=== PATIENT | male | born 2000 | race Caucasian/White ===

== ENCOUNTER 2023-12-19 19:48 | Emergency (ER) | payer OTHER ==
--- NOTE | 2023-12-19 20:08 | ED ---
Abdominal Pain HPI - General Source: patient Mode of arrival: ambulatory Limitations: no limitations <Anel Arana - Last Filed: 12/19/23 20:08> - General Source: patient, RN notes reviewed, old records reviewed <Demetrio De La Vega - Last Filed: 12/20/23 00:35> - General Chief Complaint: Abdominal Pain Stated Complaint: abd pain, sent by UC Time Seen by Provider: 12/19/23 20:08 - History of Present Illness Initial Comments: 23-year-old male presenting with chief complaint of abdominal pain. States that he has been having lower abdominal pain for the last 2 weeks. He did have 1 episode of vomiting but has not had any further vomiting. States that he has had stomach issues "for a while". Was seen by urgent care and sent here to rule out appendicitis (Anel Arana) Patient is a 23-year-old male who presents emergency department complaining of abdominal pain. Has been ongoing for weeks. States he has been worse over the last few days. Had 1 episode of vomiting but otherwise just complains of mild nausea. Did have some diarrhea a few weeks ago but that has resolved. Was sent by urgent care for CT to rule out appendicitis. Denies any other acute complaints at this time. Originally seen as a quick note. I evaluated the patient when he was placed in a room. (Demetrio De La Vega) - Related Data Previous Rx's Medication Instructions Recorded Dicyclomine [Bentyl] 10 mg PO TID PRN 7 Days #21 capsule 12/19/23 Allergies Allergy/AdvReac Type Severity Reaction Status Date / Time No Known Allergies Allergy Verified 12/19/23 19:59 Review of Systems ROS Other: All systems not noted in ROS Statement are negative. <Anel Arana - Last Filed: 12/19/23 20:08> ROS Other: All systems not noted in ROS Statement are negative. <Demetrio De La Vega - Last Filed: 12/20/23 00:35> ROS Statement: Those systems with pertinent positive or pertinent negative responses have been documented in the HPI. Review of Systems: CONST: Denies fever EYES: Denies blurry vision ENT: Denies nasal congestion C/V: Denies Chest pain RESP: Denies shortness of breath GI: Endorses abdominal pain : Denies dysuria SKIN: Denies rash. MSK: Denies joint pain. NEURO: Denies headache (Demetrio De La Vega) Past Medical History Past Medical History: No Reported History History of Any Multi-Drug Resistant Organisms: None Reported Past Surgical History: No Surgical Hx Reported Past Psychological History: Anxiety Smoking Status: Current every day smoker, Vaper Past Alcohol Use History: None Reported Past Drug Use History: None Reported <Anel Arana - Last Filed: 12/19/23 20:08> General Exam Limitations: no limitations <Anel Arana - Last Filed: 12/19/23 20:08> <Demetrio De La Vega - Last Filed: 12/20/23 00:35> - General Exam Comments Initial Comments: Visual Physical Exam Vital signs reviewed General: Well-appearing, nontoxic, no acute distress. Head: Normocephalic, atraumatic Eyes: PERRLA, EOMI ENT: Airway patent Chest: Nonlabored breathing Skin: No visual rash, normal skin tone Neuro: Alert and oriented 3 Musculoskeletal: No gross abnormalities (Anel Arana) General: Appears in no acute distress. HEAD: Normal with no signs of head trauma. EYES: PERRLA, EOMI, conjunctiva normal, no discharge. ENT: Hearing grossly intact, normal oropharynx. RESPIRATORY: Clear breath sounds bilaterally. No wheezes, rales, or rhonchi. C/V: Regular rate and rhythm. S1 and S2 auscultated, no edema, peripheral pulses 2+ and intact throughout ABD: Abdomen is soft, nondistended. Mildly tender to palpation in bilateral lower quadrants. No guarding. No rebound tenderness. No peritoneal signs. EXT: Normal range of motion, no obvious deformity SKIN: No rashes or lesions observed on exposed skin. NEURO: Alert and oriented x 4. (Demetrio De La Vega) Course Vital Signs 12/19/23 12/19/23 20:00 23:08 Temperature 98.2 F 98 F Pulse Rate 104 H 68 Respiratory 16 17 Rate Blood Pressure 114/82 119/75 O2 Sat by Pulse 99 100 Oximetry Medical Decision Making <Anel Arana - Last Filed: 12/19/23 20:08> - Lab Data Result diagrams: 12/19/23 20:43 12/19/23 20:43 <Demetrio De La Vega - Last Filed: 12/20/23 00:35> - Medical Decision Making I performed the quick note portion of this visit, electronically signed Anel Arana PA-C (Anel Arana) Was pt. sent in by a medical professional or institution (KHOI Tolbert, LEAD SETTER, urgent care, hospital, or half-way...) When possible be specific @ -Sent from urgent care for CT to rule out appendicitis Did you speak to anyone other than the patient for history (EMS, parent, family, police, friend...)? What history was obtained from this source @ -No Did you review nursing and triage notes (agree or disagree)? Why? @ -I reviewed and agree with nursing and triage notes Were old charts reviewed (outside hosp., previous admission, EMS record, old EKG, old radiological studies, urgent care reports/EKG's, half-way records)? Report findings @ -No old charts were reviewed Differential Diagnosis (chest pain, altered mental status, abdominal pain women, abdominal pain men, vaginal bleeding, weakness, fever, dyspnea, syncope, headache, dizziness, GI bleed, back pain, seizure, CVA, palpatations, mental health, musculoskeletal)? @ -Differential Abdominal Pain Men: Appendicitis, cholecystitis, diverticulosis, ischemic bowel, pancreatitis, hepatitis, UTI, gastroenteritis, AAA, incarcerated hernia, bowel obstruction, constipation, inflammatory bowel, hepatitis, peptic ulcer disease, splenic infarction, perforated viscus, testicular torsion, this is not meant to be an all-inclusive list EKG interpreted by me (3pts min.). @ -As above X-rays interpreted by me (1pt min.). @ -None done CT interpreted by me (1pt min.). @ -CT abdomen pelvis reveals no significant intra-abdominal abnormality. Possible mild bladder wall thickening however patient has no urinary complaints and urinalysis is clean. U/S interpreted by me (1pt. min.). @ -None done What testing was considered but not performed or refused? (CT, X-rays, U/S, labs)? Why? @ -None What meds were considered but not given or refused? Why? @ -None Did you discuss the management of the patient with other professionals (professionals i.e. KHOI Tolbert, LEAD SETTER, lab, RT, psych nurse, adoption social worker, cement railroad car loader, teacher, aviation tactical readiness officer, director case management)? Give summary @ -No Was smoking cessation discussed for >3mins.? @ -No Was critical care preformed (if so, how long)? @ -No Were there social determinants of health that impacted care today? How? (Homelessness, low income, unemployed, alcoholism, drug addiction, transportation, low edu. Level, literacy, decrease access to med. care, senior care, rehab)? @ -No Was there de-escalation of care discussed even if they declined (Discuss DNR or withdrawal of care, Hospice)? DNR status @ -No What co-morbidities impacted this encounter? (DM, HTN, Smoking, COPD, CAD, Cancer, CVA, ARF, Chemo, Hep., AIDS, mental health diagnosis, sleep apnea, morbid obesity)? @ -None Was patient admitted / discharged? Hospital course, mention meds given and route, prescriptions, significant lab abnormalities, going to OR and other pertinent info. @ -Patient presents for somewhat chronic abdominal pain. Was sent here for CT to rule out appendicitis. Originally seen as a quick note. Laboratory studies have already been completed and are unremarkable. Urinalysis unremarkable. Vital signs are within acceptable limits. Patient be treated with IV fluids, Toradol, Zofran, Protonix. Patient was in agreement this plan. CT shows no obvious acute intra-abdominal process. On reevaluation, patient is resting comfortably. We discussed his workup. He will follow-up with his PCP and I will provide him contact info for GI. Patient in agreement this plan. I will provide the patient with a prescription for Bentyl. I instructed the patient to follow up with their PCP in the next 1-3 days.. I explained that the patient should return to the emergency department if they experience any worsening symptoms. Strict return precautions were discussed with the patient. The patient expressed understanding of these instructions. I answered all questions that the patient had. The patient was discharged home in good condition with their prescriptions and follow up information. Undiagnosed new problem with uncertain prognosis? @ -No Drug Therapy requiring intensive monitoring for toxicity (Heparin, Nitro, Insulin, Cardizem)? @ -No Were any procedures done? @ -No Diagnosis/symptom? @ -Abdominal pain of unknown etiology Acute, or Chronic, or Acute on Chronic? @ -Acute Uncomplicated (without systemic symptoms) or Complicated (systemic symptoms)? @ -Uncomplicated Side effects of treatment? @ -No Exacerbation, Progression, or Severe Exacerbation? @ -No Poses a threat to life or bodily function? How? (Chest pain, USA, [place], pneumonia, PE, COPD, DKA, ARF, appy, cholecystitis, CVA, Diverticulitis, Homicidal, Suicidal, threat to staff... and all critical care pts) @ -Unlikely (Demetrio De La Vega) - Lab Data Lab Results 12/19/23 12/19/23 12/19/23 Range/Units 20:43 20:43 20:43 WBC 7.3 (3.8-10.6) k/uL RBC 5.54 (4.30-5.90) m/uL Hgb 16.4 (13.0-17.5) gm/dL Hct 50.6 (39.0-53.0) % MCV 91.3 (80.0-100.0) fL MCH 29.6 (25.0-35.0) pg MCHC 32.5 (31.0-37.0) g/dL RDW 13.1 (11.5-15.5) % Plt Count 183 (150-450) k/uL MPV 8.7 Neutrophils % 66 % Lymphocytes % 24 % Monocytes % 6 % Eosinophils % 2 % Basophils % 1 % Neutrophils # 4.8 (1.3-7.7) k/uL Lymphocytes # 1.7 (1.0-4.8) k/uL Monocytes # 0.5 (0-1.0) k/uL Eosinophils # 0.1 (0-0.7) k/uL Basophils # 0.1 (0-0.2) k/uL Sodium 139 (137-145) mmol/L Potassium 3.8 (3.5-5.1) mmol/L Chloride 105 (98-107) mmol/L Carbon Dioxide 32 H (22-30) mmol/L Anion Gap 2 mmol/L BUN 14 (9-20) mg/dL Creatinine 1.17 (0.66-1.25) mg/dL Est GFR (CKD-EPI)AfAm >90 (>60 ml/min/1.73 sqM) Est GFR (CKD-EPI)NonAf 88 (>60 ml/min/1.73 sqM) Glucose 108 H (74-99) mg/dL Plasma Lactic Acid Paramjit 1.0 (0.7-2.0) mmol/L Calcium 9.5 (8.4-10.2) mg/dL Total Bilirubin 0.7 (0.2-1.3) mg/dL AST 20 (17-59) U/L ALT 12 (4-49) U/L Alkaline Phosphatase 41 (38-126) U/L Total Protein 6.2 L (6.3-8.2) g/dL Albumin 4.0 (3.5-5.0) g/dL Amylase 39 (30-110) U/L Lipase 36 (23-300) U/L Urine Color Urine Appearance (Clear) Urine pH (5.0-8.0) Ur Specific [place] (1.001-1.035) Urine Protein (Negative) Urine Glucose (UA) (Negative) Urine Ketones (Negative) Urine Blood (Negative) Urine Nitrite (Negative) Urine Bilirubin (Negative) Urine Urobilinogen (<2.0) mg/dL Ur Leukocyte Esterase (Negative) 12/19/23 Range/Units 21:45 WBC (3.8-10.6) k/uL RBC (4.30-5.90) m/uL Hgb (13.0-17.5) gm/dL Hct (39.0-53.0) % MCV (80.0-100.0) fL MCH (25.0-35.0) pg MCHC (31.0-37.0) g/dL RDW (11.5-15.5) % Plt Count (150-450) k/uL MPV Neutrophils % % Lymphocytes % % Monocytes % % Eosinophils % % Basophils % % Neutrophils # (1.3-7.7) k/uL Lymphocytes # (1.0-4.8) k/uL Monocytes # (0-1.0) k/uL Eosinophils # (0-0.7) k/uL Basophils # (0-0.2) k/uL Sodium (137-145) mmol/L Potassium (3.5-5.1) mmol/L Chloride (98-107) mmol/L Carbon Dioxide (22-30) mmol/L Anion Gap mmol/L BUN (9-20) mg/dL Creatinine (0.66-1.25) mg/dL Est GFR (CKD-EPI)AfAm (>60 ml/min/1.73 sqM) Est GFR (CKD-EPI)NonAf (>60 ml/min/1.73 sqM) Glucose (74-99) mg/dL Plasma Lactic Acid Paramjit (0.7-2.0) mmol/L Calcium (8.4-10.2) mg/dL Total Bilirubin (0.2-1.3) mg/dL AST (17-59) U/L ALT (4-49) U/L Alkaline Phosphatase (38-126) U/L Total Protein (6.3-8.2) g/dL Albumin (3.5-5.0) g/dL Amylase (30-110) U/L Lipase (23-300) U/L Urine Color Light Yellow Urine Appearance Clear (Clear) Urine pH 7.5 (5.0-8.0) Ur Specific [place] 1.018 (1.001-1.035) Urine Protein Negative (Negative) Urine Glucose (UA) Negative (Negative) Urine Ketones Negative (Negative) Urine Blood Negative (Negative) Urine Nitrite Negative (Negative) Urine Bilirubin Negative (Negative) Urine Urobilinogen <2.0 (<2.0) mg/dL Ur Leukocyte Esterase Negative (Negative) Disposition <Anel Arana - Last Filed: 12/19/23 20:08> Is patient prescribed a controlled substance at d/c from ED?: No Time of Disposition: 22:56 <Demetrio De La Vega - Last Filed: 12/20/23 00:35> Clinical Impression: Abdominal pain of unknown etiology Disposition: HOME SELF-CARE Condition: Good Instructions (If sedation given, give patient instructions): Abdominal Pain (ED) Prescriptions: Dicyclomine [Bentyl] 10 mg PO TID PRN 7 Days #21 capsule PRN Reason: Pain Referrals: Meenu Winters MD [Primary Care Provider] - 1-2 days Bernarda Mcmanus MD [STAFF PHYSICIAN] - 1-2 days
[2023-12-19 20:56] LABS: Basophils # (A) 0.1 k/uL (0-0.2); Basophils % (A) 1 %; Eosinophils # (A) 0.1 k/uL (0-0.7); Eosinophils % (A) 2 %; HCT 50.6 % (39.0-53.0); HGB 16.4 gm/dL (13.0-17.5); Lymphocytes # (A) 1.7 k/uL (1.0-4.8); Lymphocytes % (A) 24 %; MCH 29.6 pg (25.0-35.0); MCHC 32.5 g/dL (31.0-37.0); MCV 91.3 fL (80.0-100.0); Mean Platelet Volume 8.7; Monocytes # (A) 0.5 k/uL (0-1.0); Monocytes % (A) 6 %; Neutrophils # (A) 4.8 k/uL (1.3-7.7); Neutrophils % (A) 66 %; Platelet Count 183 k/uL (150-450); RBC 5.54 m/uL (4.30-5.90); RDW 13.1 % (11.5-15.5); WBC 7.3 k/uL (3.8-10.6)
[2023-12-19 21:11] LABS: ALT 12 U/L (4-49); AST 20 U/L (17-59); African American GFR (CKD) >90 (>60 ml/min/1.73 sqM); Alkaline Phosphatase 41 U/L (38-126); Amylase 39 U/L (30-110); Anion Gap 2 mmol/L; Blood Urea Nitrogen 14 mg/dL (9-20); Calcium 9.5 mg/dL (8.4-10.2); Carbon Dioxide 32 mmol/L (22-30); Chloride 105 mmol/L (98-107); Glucose 108 mg/dL (74-99); Lipase 36 U/L (23-300); Non-African American GFR(CKD) 88 (>60 ml/min/1.73 sqM); Potassium 3.8 mmol/L (3.5-5.1); Sodium 139 mmol/L (137-145); Total Bilirubin 0.7 mg/dL (0.2-1.3); Total Protein 6.2 g/dL (6.3-8.2)
[2023-12-19 22:10] LABS: Appearance,Urine Clear (Clear); Bilirubin,Urine Negative (Negative); Blood,Urine Negative (Negative); Color,Urine Light Yellow; Glucose,Urine (UA) Negative (Negative); Ketones,Urine Negative (Negative); Leukocyte Esterase,Urine Negative (Negative); Nitrite,Urine Negative (Negative); PH, Urine 7.5 (5.0-8.0); Protein,Urine Negative (Negative); Specific Gravity,Urine 1.018 (1.001-1.035); Urobilinogen,Urine <2.0 mg/dL (<2.0)
[2023-12-19] MEDS: ONDANSETRON 4 MG/2 ML VIAL IVP STA (22:18)
[2023-12-19] MEDS: KETOROLAC 15 MG/ML 1 ML VIAL IVP STA (22:20)
[2023-12-19] MEDS: PANTOPRAZOLE 40 MG/10 ML VIAL IVP STA (22:24)
[2023-12-19] MEDS: SODIUM CHLORIDE 0.9% 1,000 ML IV STA (22:25)
--- NOTE | 2023-12-19 22:33 | CT ---
EXAMINATION TYPE: CT abdomen pelvis w con DATE OF EXAM: 12/19/2023 COMPARISON: None. HISTORY: right lower abd pain, diarrhea CT DLP: 1680.4 mGycm, Automated Exposure Control for Dose Reduction was Utilized. CONTRAST: CT scan of the abdomen and pelvis is performed without oral and with IV Contrast, patient injected wi th 100 cc mL of Isovue 300. FINDINGS: LUNG BASES: No significant abnormality is appreciated. LIVER/GB: No significant abnormality is appreciated. PANCREAS: No significant abnormality is seen. SPLEEN: No significant abnormality is seen. ADRENALS: No significant abnormality is seen. KIDNEYS: Mild wall thickening to the urinary bladder 5 mm. BOWEL: Slightly suboptimal evaluation without enteric contrast. No abnormal small or large bowel dila tation. Low-lying cecum into the right pelvis. Appendix within normal limits in base of cecum coronal image 45. PROSTATE/SEMINAL VESICLES: No gross abnormality seen. LYMPH NODES: No greater than 1cm abdominal or pelvic lymph nodes are appreciated. OSSEOUS STRUCTURES: No significant abnormality is seen. OTHER: No significant additional abnormality is seen. IMPRESSION: Mild wall thickening to the urinary bladder. Correlate to exclude acute cystitis. No zander l obstruction. No acute findings otherwise seen.
[2023-12-19] MEDS: ONDANSETRON 4 MG ODT STARTER PACK 2 TAB BTL PO STA (23:07)
[2023-12-19 23:09] VITALS: BP 119/75; PULSE 68; RESP 17; TEMP 98
== END 2023-12-19 23:16 | disposition home or self-care (01) ==
LOC: EC 19:48
DX: R10.31 Right lower quadrant pain (principal); R10.32 Left lower quadrant pain; F17.290 Nicotine dependence, other tobacco product, uncomplicated
CPT/HCPCS: 36415; 80053; 82150; 83605; 83690; 85025; 81003; 74177; 99284; 96374; 96375 ×2; 96361; J2405; J1885; S0119; C9113; Q9967

== ENCOUNTER → 2024-06-09 | Outpatient (CLI) | payer OTHER | END | disposition home or self-care (01) | LOC: LABMAIN 12:24 | PROVIDERS: ATTEND Student in an Organized Health Care Education/Training Program | DX: G89.29 Other chronic pain (principal); R10.13 Epigastric pain | CPT/HCPCS: 36415; 83013 ==

== ENCOUNTER → 2024-08-27 | Outpatient (CLI) | payer OTHER ==
--- NOTE | 2024-08-27 11:42 | FL ---
EXAMINATION TYPE: FL UGI air DATE OF EXAM: 08/27/2024 10:30 AM COMPARISON: None. CLINICAL INDICATION: Male, 24 years old with history of R10.13 EPIGASTRIC PAIN, , Total Fluoroscopy Time: 2 minutes 11 seconds Total DAP: 390.65 mGycm2 60 images obtained. FINDINGS: The esophagus has a normal course, caliber, motility and mucosa. Slightly limited by the very slow sw allows. The patient would only tolerate 3 ounces of the thick barium. There is a small sliding hiatal hernia present which is more apparent when the patient is prone/supin e. There is moderate gastroesophageal reflux which occurs during Valsalva and rightward rotation maneuve r. The stomach shows mild diffuse gastric fold thickening. Otherwise, the stomach and duodenum are free of any persistent filling defect. No discrete ulcer is seen. IMPRESSION: 1. Small sliding hiatal hernia and moderate gastroesophageal reflux. 2. Mild diffuse gastric fold thickening can be seen with gastritis. No discrete ulcer is identified. [facility], , 08/27/2024 11:40 AM
== END | disposition home or self-care (01) ==
LOC: RADFLMAIN 08:43
PROVIDERS: ATTEND Internal Medicine Gastroenterology
DX: K44.9 Diaphragmatic hernia without obstruction or gangrene (principal); K21.9 Gastro-esophageal reflux disease without esophagitis; K63.89 Other specified diseases of intestine
CPT/HCPCS: 74246